=== PATIENT | male | born 1975 | race Caucasian/White ===

== ENCOUNTER → 2018-08-11 | Outpatient (REF) ==
[~2018-08-11] MED LIST: CEP500 PO; CEPH-13 PO; LOR5/325 PO
--- NOTE | 2018-08-11 14:27 | RADIOLOGY IMAGING REPORT ---
FACILITY: [facility] PATIENT NAME: Hao Wolf : 1975 MR: [id number] V: [id number] EXAM DATE: ORDERING PHYSICIAN: RILEY COOK TECHNOLOGIST: Location: [facility] - [place] Patient: Hao Wolf : 1975 Visit/Account:[id number] Date of Sevice: 08/11/2018 Exam type: THORACIC SPINE 2 VIEW History: Injured in 2002. Recently started hurting again Comparison: None. Findings: There is a gentle levoconvex scoliosis of the upper thoracic spine. There are mild multilevel degene rative changes present. No gross evidence of acute fractures or subluxations. The inferior most asp ect of the thoracic spine was not entirely included on the study IMPRESSION: 1. 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 If pain continues MR is recommended Report Dictated By: Bindu Powell MD at 08/11/2018 2:20 PM Report E-Signed By: Bindu Powell MD at 08/11/2018 2:23 PM BERNYN:SAMANTHA
== END ==
LOC: RAD 13:17
PROVIDERS: ATTEND Family Medicine
DX: M51.34 Other intervertebral disc degeneration, thoracic region (principal)
CPT/HCPCS: 72070